=== PATIENT | female | born 1955 | race Caucasian/White ===

== ENCOUNTER 2018-09-02 17:58 | Emergency (ER) | payer BC, OTHER ==
[2018-09-02 18:10] VITALS: BP 128/93
--- NOTE | 2018-09-02 18:22 | EDPHY ---
H & P Time Seen by Provider: 09/02/18 18:21 HPI/ROS: CHIEF COMPLAINT: Left clavicle pain HISTORY OF PRESENT ILLNESS: 62-year-old female via private vehicle complaining of acute left clavicle and shoulder pain after she was walking, slipped and impacted said area. No paresthesia. No head injury. This was a mechanical episode, not a syncopal episode . PRIMARY CARE PROVIDER: REVIEW OF SYSTEMS: A ten point review of systems was performed and is negative with the exception of the items mentioned in the HPI PHYSICAL EXAM (Prior to examination, patient consented to physical exam, hands were washed and my usual and customary physical exam procedures followed) 1) GENERAL: Well-developed, well-nourished, alert and oriented. Appears to be in no acute distress. 2) HEAD: Normocephalic 3) HEENT: Pupils equal, round, reactive to light bilaterally. 4) LUNGS: Breathing comfortably. 5) MUSCULOSKELETAL: Step-off at the left acromioclavicular joint. Intact skin. No axillary nerve dysfunction. Soft compartments. Normal coloration. 6) SKIN: Tacked 7) VASCULAR: pulses and cap refill present are brisk 8) NEUROLOGIC: Radial, ulnar, median nerve function intact with no deficits appreciated on exam DIFFERENTIAL DIAGNOSIS: in no particular order including but not limited to fracture, sprain, compartment syndrome Procedure: Splint A left upper extremity sling splint was applied by ER weight reducing technician. After application of the splint I returned and re-examined the patient. The splint was adequately immobilizing the joint and distal to the splint the patient's circulation and sensation were intact. Patient shows no signs of compartment syndrome. Was given orthopedic precautions. Smoking Status: Never smoked Constitutional: Initial Vital Signs Temperature (C) 36.6 C 09/02/18 18:07 Heart Rate 72 09/02/18 18:07 Respiratory Rate 18 09/02/18 18:07 Blood Pressure 128/93 H 09/02/18 18:07 O2 Sat (%) 99 09/02/18 18:07 O2 Delivery Mode Room Air Allergies/Adverse Reactions: No Known Allergies Allergy (Unverified 09/02/18 18:10) Home Medications: Medication Instructions Recorded Hydrocodone/APAP 5/325 [[place] 1 tab PO Q6 PRN #7 tab 09/02/18 5/325 (RX)] MDM/Departure - MDM Imaging Results: Imaging Impressions Shoulder X-Ray 09/02/18 18:10 Impression: Grade 2 separation suspected left AC joint. Images reviewed myself ED Course/Re-evaluation: Re-evaluation with serial exams. Discussed her imaging results. Discussed limitations of x-ray. Informed that non osseous injury not ruled out. Recommended orthopedic follow-up. I think the patient can be discharged with orthopedic follow-up. Given my usual and customary orthopedic precautions and instructions. Care of patient under supervision of secondary supervising physician Dr Yadav . - Depart Disposition: Home, Routine, Self-Care Clinical Impression: Separation of left acromioclavicular joint, type 2 Qualifiers: Encounter type: initial encounter Qualified Code(s): S43.102A - Unspecified dislocation of left acromioclavicular joint, initial encounter Condition: Good Instructions: Acromioclavicular Separation (ED) Additional Instructions: Return to the ER immediately if you experience discoloration, have worsening pain, numbness, tingling, or any other symptoms that concern you. If you received x-rays in the emergency department today, be advised, that ligamentous , tendon, muscular, and other non-bony injury cannot be fully ruled out. Try to keep your affected extremity elevated above the level of your chest, and keep cold packs on the affected area, for the next 48 hours. Prescriptions: Hydrocodone/APAP 5/325 [[place] 5/325 (RX)] 1 tab PO Q6 PRN #7 tab PRN Reason: Pain, Severe Referrals: Elder Feliz MD [Medical Doctor] - 5-7 days, call for appt.
[2018-09-02] MEDS ORDERED: HYDROCOD/APAP 5/325 PREPACK#6 BTL TAKEHOME ONE (18:50)
== END 2018-09-02 19:02 | disposition home or self-care (01) ==
DX: S43.102A Unspecified dislocation of left acromioclavicular joint, initial encounter (principal); W01.0XXA Fall on same level from slipping, tripping and stumbling without subsequent striking against object, initial encounter; Y92.9 Unspecified place or not applicable; Y93.9 Activity, unspecified; Y99.9 Unspecified external cause status
CPT/HCPCS: A4565